=== PATIENT | female | born 1995 | race Hispanic/Latino ===

== ENCOUNTER 2020-05-07 19:03 | Emergency (ER) | payer BC, OTHER ==
[~2020-05-07] VITALS: Ht 147.3 cm; Wt 58.1 kg
[2020-05-07] MEDS ORDERED: SODIUM CHLORIDE 0.9% 1000ML 1,000 ML IV STA (19:24)
[2020-05-07] MEDS ORDERED: KETOROLAC TROMETHAMINE 30 MG/ML VIAL IV ONE (19:30)
[2020-05-07] MEDS ORDERED: CEFTRIAXONE SOD 1 GM VIAL IV ONE (19:30)
[2020-05-07] MEDS ORDERED: ONDANSETRON HCL INJ 2MG/ML 2ML 2 MG/ML VIAL IV ONE (19:30)
[2020-05-07] MEDS ORDERED: FAMOTIDINE 20 MG/2 ML VIAL IV ONE ×2 (19:30→19:49)
[2020-05-07] MEDS ORDERED: ZOFRAN4 MG PO (19:42)
[2020-05-07] MEDS ORDERED: CEFDINIR300 MG PO (19:42)
[2020-05-07] MEDS ORDERED: FAMOTIDINE20 MG PO (19:42)
[2020-05-07] MEDS ORDERED: CEFTRIAXONE SOD 1 GM/NS 50 ML 50 ML IV ONE ×2 (19:45→19:49)
[2020-05-07] MEDS ORDERED: KETOROLAC TROMETHAMINE 30 MG/ML VIAL ONE (19:48)
[2020-05-07] MEDS ORDERED: ONDANSETRON HCL INJ 2MG/ML 2ML 2 MG/ML VIAL ONE (19:48)
[2020-05-07] MEDS ORDERED: SODIUM CHLORIDE 0.9% 1000ML 1,000 ML ONE (19:49)
== END 2020-05-07 20:44 | disposition home or self-care (01) ==
LOC: FSED 19:20
DX: R10.11 Right upper quadrant pain (principal); R10.13 Epigastric pain; R11.2 Nausea with vomiting, unspecified; N12 Tubulo-interstitial nephritis, not specified as acute or chronic
CPT/HCPCS: 80053; 81003; 81025; 85025; 99283; J0696; J1885; J2405; J7030

== ENCOUNTER 2020-10-10 21:06 | Emergency (ER) | payer BC ==
[~2020-10-10] VITALS: Ht 147.3 cm; Wt 59.0 kg
[~2020-10-10 21:06] MED LIST: CEFDINIR300 MG PO; FAMOTIDINE20 MG PO; ZOFRAN4 MG PO
[2020-10-10 22:52] VITALS: BP 116/76
== END 2020-10-10 22:52 | disposition home or self-care (01) ==
LOC: FSED 22:27
DX: H66.91 Otitis media, unspecified, right ear (principal)
CPT/HCPCS: 99282